=== PATIENT | male | born 1995 | race Caucasian/White ===

== ENCOUNTER 2020-01-13 13:34 | Emergency (ER) | payer OTHER, SELFPAY ==
[2020-01-13 13:44] VITALS: BP 133/81; PULSE 69; RESP 18; TEMP 35.9; O2SAT 98
--- NOTE | 2020-01-13 15:10 | ED.ABDPAIN ---
HPI - Abdominal Pain General Chief Complaint: Abdominal Pain Stated Complaint: stomach pains Time Seen by Provider: 01/13/20 15:10 Source: patient, family and RN notes reviewed Mode of arrival: ambulatory Limitations: no limitations History of Present Illness HPI narrative: 24-year-old male presents to [facility] care with complaints of 1- 2 month duration of intermittent abdominal pain and constipation.Patient states that he took fiber like Metamucil and had weird bowel movement yesterday, was huge and stringy wonders if he could have a parasite, denies noting any blood in stool. Patient states that his stomach is upset denies any acute abdominal pain, no pain in lower abdomen on either side, denies any vomiting or decrease in his appetite. Patient denies any difficulty with urination, no burning or pain or any noted blood or foul odor. MD elicited complaint: other (Constipation) Pertinent past history: constipation Onset (ago): month(s) (1-2) Pain Consistency: intermittent Location: epigastric (mid abdomen) Severity: similar to previous episodes Quality: cramping Radiation: none Migration to: no migration Exacerbating factors: bowel movement Relieving factors: bowel movement Associated symptoms: nausea and constipation Treatments prior to arrival: other (fiber) Related Data Allergies Allergy/AdvReac Type Severity Reaction Status Date / Time SERTRALINE HCL Allergy Mild Hives Uncoded 01/13/20 13:48 Review of Systems Review of Systems: Narrative: CONSTITUTIONAL: Denies fever, chills, or sweats. EYES: Denies visual changes, redness, or discharge. ENT: Denies rhinorrhea, congestion, sore throat, or otalgia. CARDIOVASCULAR: Denies chest pain, palpitations, or edema. RESPIRATORY: Denies cough or dyspnea. GASTROINTESTINAL: Intermittent abdominal pain/cramping,no nausea, vomiting, or diarrhea. GENITOURINARY: Denies dysuria or hematuria. SKIN: Denies rash or itching. MUSCULOSKELETAL: Denies back pain, joint pain, or myalgia. NEUROLOGIC: Denies headache, numbness, or weakness. PSYCHIATRIC:Positive history of anxiety or depression. All systems reviewed & are unremarkable except as noted in HPI and below PMFSH Past Medical History Medical History (Updated 01/17/20 @ 09:12 by Kim Fields NP) ADD (attention deficit disorder) Anxiety and depression Bipolar 1 disorder Ear infection Fracture of left hand Surgical History Surgical History (Updated 01/17/20 @ 09:12 by Kim Fields NP) History of placement of ear tubes Social History Social History (Updated 01/17/20 @ 09:12 by Kim Fields NP) Smoking status: Current every day smoker Living arrangements: with family Gender identity (if verbalized by the patient): Male Exam Narrative: Exam Narrative: GENERAL: Well-appearing, well-nourished, and in no acute distress. HEAD: Normocephalic, atraumatic. EYES: PERRLA and EOMI. ENT: Nares clear, no rhinorrhea or epistaxis. Mucous membranes moist.TM's normal with good light reflex, throat pink with no swelling or lesions NECK: Supple.no lymphadenopathy CHEST: Clear to auscultation. No respiratory distress. HEART: Regular rate and rhythm. No murmur heard. Normal peripheral pulses. ABDOMEN: Soft, nontender on palpation, negative McBurney point tenderness, no CVA tenderness noted, nondistended, normal active bowel sounds. EXTREMITIES: Normal range of motion. No edema. SKIN: Warm, dry, no rash. NEURO: No focal deficits. Alert and oriented x3. Course Vital Signs Vital signs: Vital Signs Temperature 35.9 C L 01/13/20 13:44 Pulse Rate 69 01/13/20 13:44 Respiratory Rate 18 01/13/20 13:44 Blood Pressure 133/81 01/13/20 13:44 Pulse Oximetry 98 01/13/20 13:44 Temperature 35.9 C L 01/13/20 13:44 Pulse Rate 69 01/13/20 13:44 Respiratory Rate 18 01/13/20 13:44 Blood Pressure 133/81 01/13/20 13:44 Pulse Oximetry 98 01/13/20 13:44 MDM - Abdominal Pain Differential Diagnosis Diff
== END 2020-01-13 15:30 | disposition home or self-care (01) ==
PROVIDERS: Emergency Provider Registered Nurse
DX: R10.13 Epigastric pain (principal); K59.00 Constipation, unspecified
CPT/HCPCS: 99213; G0463

== ENCOUNTER 2020-01-31 14:49 | Outpatient (CLI) | payer OTHER, SELFPAY | END 2020-01-31 14:50 | disposition home or self-care (01) | PROVIDERS: PCP Nurse Practitioner Family; Visit Provider Nurse Practitioner Family | DX: R19.5 Other fecal abnormalities (principal) | CPT/HCPCS: 87177; 87209 ==

== ENCOUNTER 2020-08-17 15:59 | Outpatient (CLI) | payer OTHER, SELFPAY ==
--- NOTE | ~2020-08-17 | US_ITS ---
EXAMINATION: US right upper quadrant DATE: 08/17/2020 16:29 INDICATION: Right upper quadrant abdominal pain. TECHNIQUE: Multiple grayscale and Doppler ultrasound images of the abdomen were obtained. COMPARISON: None FINDINGS: The visualized portions of the head, body, and tail of the pancreas are normal. The liver i s normal without focal lesion. There is normal flow in main portal vein. The gallbladder is normal in size. No gallstones or gallbladder wall thickening. There was no sonographic Mcneil sign. The common duct is normal and measures 3 mm. IMPRESSION: 1. Normal right upper quadrant ultrasound. Reviewed, dictated and finalized at location A.
== END 2020-08-17 16:00 | disposition home or self-care (01) ==
PROVIDERS: PCP Nurse Practitioner Family; Visit Provider Nurse Practitioner Family
DX: R10.11 Right upper quadrant pain (principal)
CPT/HCPCS: 76705

== ENCOUNTER 2021-04-17 12:03 | Outpatient (CLI) | payer OTHER, SELFPAY ==
--- NOTE | ~2021-04-17 | XR_ITS ---
XR elbow RT 2V 04/17/2021 12:40 INDICATION: Right elbow pain PROCEDURE: 2 views right elbow COMPARISON: No prior studies for comparison. FINDINGS: Fracture, dislocation or subluxation is not identified. The soft tissues appear within norm al limits. No foreign bodies are identified. IMPRESSION: 1: NO ACUTE BONE OR JOINT ABNORMALITY IDENTIFIED. Reviewed, dictated and finalized at location A.
[2021-04-17 12:44] LABS: Basophils Absolute Auto 0.1 K/mm3 (0.0-0.1); Basophils Percent Auto 1.1 % (0.2-1.2); Eosinophils Absolute Auto 0.2 K/mm3 (0-0.3); Eosinophils Percent Auto 3.4 % (0-4.4); Hematocrit 50.2 % (42.0-52.0); Hemoglobin 16.8 g/dL (14.0-18.0); Immature Granulocyte Absolute 0.01 K/mm3 (0.00-0.031); Immature Granulocyte Percent A 0.2 % (0-0.5); Lymphocytes Absolute Auto 2.02 K/mm3 (0.9-3.2); Lymphocytes Percent Auto 38.1 % (18.3-44.2); Mean Corpuscular HGB Conc 33.5 g/dl (32-36); Mean Corpuscular Hemoglobin 28.1 pg (26-34); Mean Corpuscular Volume 83.9 fl (80-100); Mean Platelet Volume 10.1 fl (7.4-10.4); Monocytes Absolute Auto 0.4 K/mm3 (0.1-0.6); Monocytes Percent Auto 7.7 % (2.6-8.5); Neutrophils Absolute Auto 2.6 K/mm3 (1.3-6.7); Neutrophils Percent Auto 49.5 % (45.5-73.1); Platelet Count Result 204 k/mm3 (150-375); Red Blood Count 5.98 M/mm3 (4.6-6.20); Red Cell Distribution Width 11.7 % (11.5-14.5); White Blood Count 5.3 K/mm3 (4.5-10.0)
[2021-04-17 13:05] LABS: LDL Cholesterol Direct 98 mg/dL
[2021-04-17 13:37] LABS: Vitamin D 25 Hydroxy 26.1 ng/mL
[2021-04-17 14:00] LABS: Folic Acid 15.5 ng/mL (2.76->20)
[2021-04-17 15:23] LABS: Alanine Aminotransferase 12 U/L (4-50); Albumin Level 5.1 g/dL (3.5-5.1); Alkaline Phosphatase 76 U/L (38-126); Anion Gap 12 mmol/L (8-16); Aspartate Amino Transferase 48 U/L (17-59); Bilirubin,Total 1.8 mg/dL (0.2-1.3); Blood Urea Nitrogen 11 mg/dL (9-20); Calcium 10.3 mg/dL (8.4-10.2); Carbon Dioxide 26 mmol/L (22-30); Chloride 104 mmol/L (98-107); Cholesterol 201 mg/dL (0-200); Estimated Glomerular Filt Rate > 60; Glucose 98 mg/dL (75-110); HDL Direct 46 mg/dL; Potassium 3.7 mmol/L (3.4-5.0); Sodium 142 mmol/L (137-145); Triglycerides 77 mg/dL (<150)
== END 2021-04-17 12:04 | disposition home or self-care (01) ==
PROVIDERS: PCP Nurse Practitioner Family; Visit Provider Nurse Practitioner Family
DX: Z13.0 Encounter for screening for diseases of the blood and blood-forming organs and certain disorders involving the immune mechanism (principal); Z13.1 Encounter for screening for diabetes mellitus; Z13.29 Encounter for screening for other suspected endocrine disorder; Z13.9 Encounter for screening, unspecified; Z13.220 Encounter for screening for lipoid disorders
CPT/HCPCS: 36415; 73070; 80053; 80061; 82306; 82607; 82746; 84443; 85025

== ENCOUNTER 2021-08-15 16:13 | Emergency (ER) | payer OTHER, SELFPAY ==
[2021-08-15 16:25] VITALS: BP 139/80; PULSE 70; RESP 16; TEMP 36.9; O2SAT 100
--- NOTE | 2021-08-15 17:02 | ED.NAVMDI ---
HPI - Nausea/Vomiting/Diarrhea General Chief complaint: Upper Respiratory Infection Stated complaint: Upset Stomach Source: patient and RN notes reviewed Limitations: no limitations History of Present Illness HPI Narrative: The unvaccinated patient, a non-smoker/nondrinker recreation worker, presents with stomach symptoms and request for work note. About a half a week patient first developed vomiting x5/day followed by diarrhea x3/day for 4 days, the coworkers had, which is since improved. No fever, foreign travel, abdominal pain, blood; no loss of taste/smell, CP, cough, S OB. Symptoms are almost completely absent at this point associated with nausea, worse with large oral intake. Related Data Allergies Allergy/AdvReac Type Severity Reaction Status Date / Time cannabidiol (CBD) extract AdvReac Intermediate Nausea and Verified 08/15/21 18:12 Vomiting nicotine AdvReac Intermediate Fainting Verified 08/15/21 18:12 SERTRALINE HCL Allergy Mild Hives Uncoded 08/15/21 18:11 Review of Systems Review of Systems: General/Constitutional: No weight loss,fever Eyes: N0: Redness,discharge Ears/Nose/Throat: No: Epistaxis,ear discharge Respiratory: Denies: Hemoptysis Gastrointestinal: Bleeding-rectal, REPORTS vomiting Skin: No Lumps, eruption Neurologic: No Focal Weakness,Sz Hematologic: Denies: Petechiae/Purpura Psychiatric: No: Suicida ideationl All Other Systems: Reviewed and Negative [facility] Past Medical History Medical History (Updated 08/15/21 @ 17:05 by Jose Elias Leone MD) ADD (attention deficit disorder) Anxiety and depression Bipolar 1 disorder Ear infection Fracture of left hand Surgical History Surgical History (Updated 01/17/20 @ 09:12 by Kim Fields NP) History of placement of ear tubes Social History Social History (Updated 01/17/20 @ 09:12 by Kim Fields NP) Smoking status: Current every day smoker Gender identity (if verbalized by the patient): Male Comments At time of signature, agree with nursing past medical, surgical, social and family history. There is no relevant family history pertinent to the presenting complaint Exam Narrative: General Appearance: Well appearing, No distress EYE: PERRLA, Conjunctiva clear Ears: External ear normal Nose: Normal nose Mouth/Throat: Normal appearing, Normal lips Neck: Supple Respiratory: Airway patent, No respiratory distress Cardiovascular: RRR Abdomen: Soft, Non-tender, Musculoskeletal: Full ROM Skin: Warm, Dry Neurological: A&O x3, CN II-X intact Psychiatric: Normal mood, Normal affect Course Vital Signs Vital signs: Vital Signs Temperature 98.5 F 08/15/21 16:25 Pulse Rate 70 08/15/21 16:25 Respiratory Rate 16 08/15/21 16:25 Blood Pressure 139/80 08/15/21 16:25 Pulse Oximetry 100 08/15/21 16:25 Temperature 98.5 F 08/15/21 16:25 Pulse Rate 70 08/15/21 16:25 Respiratory Rate 16 08/15/21 16:25 Blood Pressure 139/80 08/15/21 16:25 Pulse Oximetry 100 08/15/21 16:25 MDM - Nausea/Vomiting/Diarrhea Lab Data Labs: Lab Results 08/15/21 Range/Units 16:35 POC SARS CoV-2 Ag Negative (Negative) Discharge Plan Discharge Clinical Impression: Vomiting and diarrhea Patient Disposition: Home, Self-Care Condition: Stable Instructions: Gastroenteritis (ED) Additional Instructions: You may take OTC preparations for diarrhea like Imodium, etc. Prescriptions: New ondansetron HCl [Zofran] 4 mg tablet 4 mg PO DAILY PRN (Reason: nausea and vomiting) 1 Days Qty: 10 RF: 0 No Action famotidine [Pepcid] 40 mg tablet 40 mg PO DAILY Qty: 30 RF: 0 polyethylene glycol 3350 17 gram/dose powder 17 gm PO DAILY Qty: 510 RF: 0 Follow-up/Referrals: Long,Adriana Waters BRAKES INSPECTOR-BC [Primary Care Provider] - Stand Alone Forms: Work/School Release IP
== END 2021-08-15 17:15 | disposition home or self-care (01) ==
PROVIDERS: Emergency Provider Emergency Medicine; PCP Nurse Practitioner Family
DX: R11.10 Vomiting, unspecified (principal); R19.7 Diarrhea, unspecified; Z20.822 Contact with and (suspected) exposure to COVID-19
CPT/HCPCS: 87426; 99213; C9803; G0463

== ENCOUNTER 2022-06-05 08:03 | Emergency (ER) | payer OTHER, SELFPAY ==
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
[2022-06-05 08:12] VITALS: BP 123/78; PULSE 50; RESP 16; TEMP 36.8; O2SAT 100
== END 2022-06-05 08:35 | disposition short-term general hospital (02) ==
PROVIDERS: Emergency Provider Nurse Practitioner Family; PCP Nurse Practitioner Family
DX: S69.91XA Unspecified injury of right wrist, hand and finger(s), initial encounter (principal); X58.XXXA Exposure to other specified factors, initial encounter
CPT/HCPCS: 99212; G0463

== ENCOUNTER 2022-06-05 08:48 | Emergency (ER) | payer OTHER, SELFPAY ==
--- NOTE | ~2022-06-05 | XR_ITS ---
XR hand RT min 3V DATE: 06/05/2022 09:07 INDICATION: Hyperextension injury of second digit yesterday. Pain at second metacarpophalangeal joint TECHNIQUE: 3 views of right hand COMPARISON: None FINDINGS: No recent fracture or dislocation. No periosteal reaction or bone destruction. No erosive c hange. Joint spaces are preserved. IMPRESSION: No recent fracture or dislocation Reviewed, dictated and finalized at location A.
[2022-06-05 08:58] VITALS: BP 140/73; PULSE 46; RESP 16; TEMP 36.6; O2SAT 100
[2022-06-05 10:20] VITALS: PULSE 82
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
[2022-06-05 10:35] VITALS: BP 122/77; PULSE 88; RESP 16; O2SAT 100
== END 2022-06-05 10:36 | disposition home or self-care (01) ==
LOC: ANHED 10:30
PROVIDERS: Emergency Provider Emergency Medicine; PCP Nurse Practitioner Family
DX: S69.91XA Unspecified injury of right wrist, hand and finger(s), initial encounter (principal); F17.200 Nicotine dependence, unspecified, uncomplicated; W22.8XXA Striking against or struck by other objects, initial encounter
CPT/HCPCS: 73130; 99283

== ENCOUNTER 2023-01-05 17:20 | Outpatient (CLI) | payer OTHER, SELFPAY ==
--- NOTE | ~2023-01-05 | XR_ITS ---
XR hand RT min 3V, XR finger 5th RT min 2V 01/05/2023 17:49 Indication: Right hand and fifth finger pain after fall Procedure: 3 views right hand and 4 views right fifth finger Comparison: Right hand series dated 06/05/2022 Findings: There is a healed right fifth metacarpal fracture. No acute fracture, subluxation or disloc ation. There is mild soft tissue swelling along the ulnar aspect of the fifth metacarpal. Impression: 1: No acute fracture. Reviewed, dictated and finalized at location A. DUMPER Impression: 1: No acute fracture. Impression: 1: No acute fracture.
== END 2023-01-05 17:21 | disposition home or self-care (01) ==
LOC: ANHIMG 17:23
PROVIDERS: PCP Nurse Practitioner Family; Visit Provider Nurse Practitioner Family
DX: M79.641 Pain in right hand (principal)
CPT/HCPCS: 73130; 73140

== ENCOUNTER 2023-08-11 19:13 | Emergency (ER) | payer SELFPAY ==
--- NOTE | 2023-08-11 19:17 | ED.NAVMDI ---
HPI - Nausea/Vomiting/Diarrhea General Chief complaint: Nausea/Vomiting/Diarrhea Stated complaint: Vomiting,Diarrhea Time Seen by Provider: 08/11/23 19:27 Source: patient and RN notes reviewed Mode of arrival: ambulatory Limitations: no limitations History of Present Illness HPI Narrative: 27-year-old male presents concern for vomiting and diarrhea. He reports 2 days ago he had copious vomiting and diarrhea that he relates to eating peanuts. He has a history of cannabis hyperemesis. He reports he has not had any vomiting or diarrhea since yesterday morning. He has been eating and drinking normally, he is urinating normally. He reports the day he was sick he had chills and sweats but denies fever, chills, sweats in the last 36 hours. He denies nasal congestion, rhinorrhea, sore throat, cough, body aches. MD elicited complaint: nausea, vomiting and diarrhea Related Data Home Medications Medication Instructions Recorded Confirmed No Home Medications 06/05/22 08/11/23 Allergies Allergy/AdvReac Type Severity Reaction Status Date / Time cannabidiol (CBD) extract AdvReac Intermediate Nausea and Verified 08/11/23 19:15 Vomiting nicotine AdvReac Intermediate Fainting Verified 08/11/23 19:15 SERTRALINE HCL AdvReac Mild Hives Uncoded 08/11/23 19:15 Review of Systems Review of Systems: CONSTITUTIONAL: Denies malaise, chills, sweats, or fever. ENT: Denies rhinorrhea, congestion, sinus pain, otalgia or sore throat. CARDIOVASCULAR: Denies chest pain, palpitations, or edema. RESPIRATORY: Denies cough or dyspnea. GASTROINTESTINAL: Denies abdominal pain, nausea, vomiting, diarrhea, bloody, or mucous stools. GENITOURINARY: Denies dysuria or hematuria. MUSCULOSKELETAL: Denies myalgia. NEUROLOGIC: Denies headache. All systems reviewed & are unremarkable except as noted in HPI and below PMFSH Past Medical History Medical History ADD (attention deficit disorder) Anxiety and depression Bipolar 1 disorder Ear infection Fracture of left hand Surgical History Surgical History History of placement of ear tubes Social History Social History Smoking status: Current every day smoker Living arrangements: with family Gender identity (if verbalized by the patient): Male Comments At time of signature, agree with nursing past medical, surgical, social and family history. There is no relevant family history pertinent to the presenting complaint Exam Narrative: GENERAL: Well-appearing, well-nourished, and in no acute distress. HEAD: Normocephalic, atraumatic. EYES: PERRLA, conjunctivae clear, and EOMI. ENT: Nares clear, no rhinorrhea or epistaxis. Mucous membranes moist. Oropharynx without edema, erythema, or lesions. Tonsils not enlarged and without exudate. NECK: Supple. No lymphadenopathy CHEST: Speaks in full sentences. No respiratory distress. HEART: Regular rate and rhythm. ABDOMEN: Soft, flat, nondistended, nontender. SKIN: Warm, dry, no rash. NEURO: Alert and oriented x3. PSYCH: Normal mood and affect Course Course Emergency Course: Patient is aware of diagnosis, understands and agrees to treatment plan. Anticipatory guidance given. Patient agrees to follow-up as directed and is aware of reasons to seek care at the emergency department. Portions of this record may have been created with voice recognition software Level of Care: Express Care Visit Vital Signs Vital signs: Reviewed. MDM - Nausea/Vomiting/Diarrhea MDM Narrative Medical decision making narrative: No evidence of pancreatitis, AAA, cholecystitis, choledocholithiasis, cholangitis, mesenteric ischemia, small bowel obstruction, diverticulitis, colitis, appendicitis, or pelvic etiology such as ovarian/testicular torsion, TOA, or ectopic . Patient
[2023-08-11 19:28] VITALS: BP 145/80; PULSE 54; RESP 16; TEMP 36.3; O2SAT 100
== END 2023-08-11 19:34 | disposition home or self-care (01) ==
PROVIDERS: Emergency Provider Nurse Practitioner; PCP Nurse Practitioner Family
DX: R11.2 Nausea with vomiting, unspecified (principal); R19.7 Diarrhea, unspecified
CPT/HCPCS: 99211; G0463

== ENCOUNTER 2025-01-14 13:13 | Emergency (ER) | payer OTHER, SELFPAY ==
--- NOTE | 2025-01-14 13:14 | ED.LOWEXIN ---
HPI - Extremity Injury (Lower) General Chief Complaint: Extremity Problem,Nontraumatic Stated Complaint: LT Knee Pain Time Seen by Provider: 01/14/25 13:14 Source: patient Mode of arrival: ambulatory Limitations: no limitations History of Present Illness HPI Narrative: Patient is a 29-year-old male who presents with left knee pain for 5 days. Patient states he had been working out and then was at work going down stairs when he had sharp pain to lateral side knee. Patient states pain has improved but is still present only when walking. Denies any numbness, tingling or weakness to legs. Has not taken anything for symptoms. Related Data Home Medications ?Medication ?Instructions ?Recorded ?Confirmed ?Last Taken ?Type No Home Medications 06/05/22 08/11/23 Unknown History Allergies Allergy/AdvReac Type Severity Reaction Status Date / Time cannabidiol (CBD) extract AdvReac Intermediate Nausea and Verified 01/14/25 13:16 Vomiting nicotine AdvReac Intermediate Fainting Verified 01/14/25 13:16 SERTRALINE HCL AdvReac Mild Hives Uncoded 01/14/25 13:16 Review of Systems Review of Systems: All systems reviewed & are unremarkable except as noted in HPI and below Constitutional: Constitutional: Denies body ache(s), Denies chills, Denies fatigue, Denies fever(s), Denies headache(s), Denies malaise and Denies weakness Eyes: Eyes: Denies blurry vision, Denies irritation and Denies loss of vision ENT: Denies otalgia, Denies headache(s), Denies nasal discharge, Denies sinus pain and Denies sore throat Cardiovascular: Cardiovascular: Denies chest pain, Denies irregular heart rhythm and Denies dyspnea Respiratory: Respiratory: Denies dyspnea Gastrointestinal: Gastrointestinal: Denies abdominal pain, Denies melena, Denies hematochezia, Denies diarrhea, Denies nausea and Denies vomiting Musculoskeletal: Musculoskeletal: Denies back pain, Denies myalgias and Reports arthralgias Integumentary/Breasts: Skin/Breast: Denies pruritus and Denies rash Neurologic: Denies headache(s), Denies loss of vision and Denies weakness Psychiatric: Psychiatric: Reports no additional psychiatric complaints Endocrine: Endocrine: Denies fatigue PMFSH Past Medical History Medical History Fracture of left hand Ear infection ADD (attention deficit disorder) Bipolar 1 disorder Anxiety and depression Surgical History Surgical History History of placement of ear tubes Social History Social History Smoking status: Current every day smoker Living arrangements: with family Gender identity (if verbalized by the patient): Male Comments At time of signature, agree with nursing past medical, surgical, social and family history. There is no relevant family history pertinent to the presenting complaint. Exam Const: General: cooperative, healthy appearing, comfortable, no acute distress and well nourished Nutritional Appearance: well nourished Orientation/consciousness: patient oriented x3 Limitations: no limitations HENMT: Head: normal to inspection, normocephalic and atraumatic Ears: hearing grossly normal bilaterally and external ears normal Face/Nose/Sinus: Normal external nose present, normal facial exam and face symmetric Face and sinus: normal facial exam and face symmetric Mouth: Yes lip normal Eyes: General: appearance normal, both eyes and all related structures Alignment and Position: alignment normal and position normal Periorbital: periorbital findings normal Eyelids: eyelids normal Pupils: Equal, round and reactive pupils present EOM: EOMs intact bilaterally Neck: Neck: normal visual inspection, full ROM and supple Chest: Chest palpation & inspection: normal inspection of the chest Resp: Effort & Inspection: normal respiratory effort and able to speak in complete sentences Auscultation: clear to auscultation bilaterally Cardio: Rate: regular rate Rhythm: regular rhythm Heart sounds: S1 normal heart sound present and S2 normal heart sound present GI: Inspection: normal to inspection Skin: General skin exam: normal color and no rashes or lesions noted Neuro: General: patient oriented x3 and moves all extremities Cranial nerves: Yes Equal, round and reactive pupils present Speech: normal speech Gait exam (Neuro): Normal gait present Extrem: General: normal to inspection, full ROM and no edema Left lower extremity: knee Details: normal to inspection, tenderness Location: of the lateral joint line, normal ROM and knee ligament exam normal Details: anterior drawer test normal, posterior drawer test normal, valgus stress test normal and varus stress test normal; no swelling, no ecchymosis and no deformity, lower leg Details: normal to inspection, ankle Details: normal to inspection and normal ROM; achilles tendon exam normal and foot Details: normal capillary refill, toes with normal ROM and vascular exam Details: dorsalis pedis pulse present and normal capillary refill Psych: Appearance: grossly normal and well kempt Mental Status: mental status grossly normal Speech and movement: Normal speech and movement present Affect: normal affect Attitude: cooperative Thought process: Normal thought process present Course Course Emergency Course: Patient is aware of diagnosis, understands and agrees to treatment plan. Anticipatory guidance given. Patient agrees to follow-up as directed and is aware of reasons to seek care at the emergency department. Portions of this record may have been created with voice recognition software Level of Care: Express Care Visit Vital Signs Vital signs: Reviewed MDM - Extremity Injury (Lower) MDM Narrative Medical decision making narrative: An Conner wrap applied Pt well hydrated appearing, in no respiratory distress, hemodynamically stable. Recommend supportive care. The patient is stable at time of discharge the clinical impression was discussed and the patient was given the opportunity to ask questions, which were addressed as completely as possible given the information available at present. Anticipatory guidance and return to care precautions were discussed and the importance of primary care follow-up was stressed and encouraged. The patient voiced understanding of the plan, indications to return, and the need for follow-up. Exam findings show no acute concerns or changes Patient is appropriate for outpatient treatment and follow-up. Differential Diagnosis Differential diagnosis: Likely acute internal derangement of knee, fracture of femur and other (Knee sprain, knee effusion, less likely to plateau fracture or patellar fracture) Medical Records Attestation: I reviewed the patient's medical records. Discharge Plan Discharge Clinical Impression: Strain of knee Qualifiers: Encounter type: initial encounter Laterality: left Qualified Code(s): S86.912A - Strain of unspecified muscle(s) and tendon(s) at lower leg level, left leg, initial encounter Patient Disposition: Home, Self-Care Condition: Stable Instructions: Knee Sprain (ED) Additional Instructions: Minimize activities that aggravate the condition The RICE protocol. Follow the RICE protocol as soon as possible after your injury: Rest your knee by not walking on it. Ice should be immediately applied to keep the swelling down. It can be used for 20 to 30 minutes, three or four times daily. Do not apply ice directly to your skin. Compression dressings, bandages or conner-wraps will immobilize and support your injured knee. Elevate your knee above the level of your heart as often as possible during the first 48 hours. For pain, you may take: Tylenol 650-1000mg by mouth every 4-6 hours. Do not exceed 4000mg in 24 hours. Advil (Ibuprofen) 600 mg by mouth every 6 hours. Do not exceed 2400mg in 24 hours. 8 AM: Tylenol 11 AM: Ibuprofen 2 PM: Tylenol 5 PM: Ibuprofen 8 PM: Tylenol 11 PM: Ibuprofen 2 AM: Tylenol 5 AM: Ibuprofen Please schedule a follow-up visit with your personal physician for further evaluation and treatment within 1week OR If your symptoms persist, change or worsen significantly before you can contact your personal physician then please, without delay, go to the emergency department for further evaluation. If you are having a hard time finding a physician please call our [facility] liaison at [phone]. Patient Language: Azeri Prescriptions: No Action No Home Medications Follow-up/Referrals: Ira Damon DO [Physician] - 3 Days (Establish care) Stand Alone Forms: Work/School Release IP Time of Disposition: 13:31
[2025-01-14 13:22] VITALS: BP 140/69; PULSE 66; RESP 18; TEMP 36.2; O2SAT 99
--- OUTSIDE RECORDS SUMMARY | 2025-01-14 15:04 | XMS_ITS | Clinical Summary ---
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 [employer] Gender Identity Not on file Sexual Orientation Not on file Plan of Treatment Health Maintenance Due Date Last Done Comments Hepatitis C Virus (HCV) Screening 1996 Hepatitis B Immunization (2 of 3 - 3-dose series) 12/06/1997 11/08/1997 Influenza Immunization (#1) 2024 SARS-COV-2 Immunization ( season) 2024 Respiratory Syncytial Virus (RSV) Immunization (Adult) (1 - 1-dose 75+ series) 2071 DTaP/Tdap/Td Immunization Discontinued 2006, 12/26/2000, 02/10/1998, Additional history exists TdaP Immunization Completed 08/22/2007 Meningococcal Immunization (ACWY) Completed 09/11/2014, 05/27/2011 Pneumococcal Immunization Combined Aged Out No longer eligible based on patient's age to complete this topic Rotavirus Immunization Aged Out No lo nger eligible based on patient's age to complete this topic
--- OUTSIDE RECORDS SUMMARY | 2025-01-14 15:04 | XMS_ITS | Clinical Summary ---
Author Organization [facility] Address [address] [place] [id number] Care Team Providers Care Service Officer Name Role Phone Unavailable Primary Care Provider Unavailabl e Social History Tobacco Use Types Packs/Day Years Used Date Smoking Tobacco: Never Assessed Sex and Gender Information Value Date Recorded Sex Assigned at Not on file Legal Sex Male 6:52 PM CDT Gender Identity Not on file Sexual Orientation Not on file Plan of Treatment Health Maintenance Due Date Last Done Comments Annual Physical 1999 Hepatitis C 2014 DTaP, Tdap and Td Vaccines ( 1 - Tdap) 2015 Hepatitis B Vaccines (1 of 3 - 19+ 3-dose series) 2015 COVID-19 Vaccine (2023-2 5 season) 2024 Influenza Adult (#1) 2024 HPV Vaccines Aged Out No longer eligi ble based on patient's age to complete this topic Meningococcal B Vaccine Aged Out No l onger eligible based on patient's age to complete this topic Meningococcal Vaccine Aged Out No arleen patrick eligible based on patient's age to complete this topic Pneumococcal Vaccine: Pediat rics (0 to 5 Years) and At-Risk Patients (6 to 64 Years) Aged Out No longer eligible b ased on patient's age to complete this topic RSV Immunizations Under 20 Months Aged Out No longer eligible based on patient's age to complete this topic
== END 2025-01-14 13:32 | disposition home or self-care (01) ==
PROVIDERS: Emergency Provider Nurse Practitioner Family
DX: S86.912A Strain of unspecified muscle(s) and tendon(s) at lower leg level, left leg, initial encounter (principal); X58.XXXA Exposure to other specified factors, initial encounter
CPT/HCPCS: 99212; G0463

== ENCOUNTER 2025-07-01 14:11 | Emergency (ER) | payer OTHER, SELFPAY ==
[2025-07-01 14:17] VITALS: BP 130/80; PULSE 53; RESP 18; TEMP 36.1; O2SAT 100
--- OUTSIDE RECORDS SUMMARY | 2025-07-01 14:38 | XMS_ITS | Clinical Summary ---
Author Organization [facility] Address [address] [place] [id number] Care Team Providers Care Windlasser Name Role Phone Unavailable Primary Care Provider [...] of 3 - 19+ 3-dose series) 2015 HPV Vaccines (1 - 3-dose SCD M series) 2023 COVID-19 Vaccine ( - 2023-2 5 season) 2024 Meningococcal B Vaccine Aged Out No l onger eligible based on patient's age to complete this topic Meningococcal Vaccine Aged Out No arleen patrick eligible based on patient's age to complete this topic Pneumococcal Vaccine: Pediat rics (0 to 5 Years) and At-Risk Patients (6 to 49 Years) Aged Out No longer eligible b ased on patient's age to complete this topic RSV Immunizations Under 20 Months Aged Out No longer eligible based on patient's age to complete this topic
--- NOTE | 2025-07-01 14:40 | ED_ITS ---
HPI - Extremity Problem General Chief complaint: Extremity Problem,Nontraumatic Stated complaint: Bilateral Leg Pain Time Seen by Provider: 07/01/25 14:15 Source: patient and RN notes reviewed Mode of arrival: ambulatory Limitations: no limitations History of Present Illness HPI Narrative: 29-year-old male presents to the [facility] complaining of bilateral calf pain for 3 days. Patient believes he thought they might have been sore from exercising 3 days ago, he states he was working on his legs at that time. Today he woke up with severe calf pain in both of his calves that it was much worse the last few days. Patient says his mother thinks his legs are swollen however he does not think his legs are swollen. Patient reports the pain is worse when he is going from sitting to standing in the back of his calves. Patient denies any falls or apparent injuries, chest pain, shortness of breath, history of blood clots, or any medical problems. Patient is not taking medications daily. Patient is not taking anything for the pain. Related Data Home Medications ?Medication ?Instructions ?Recorded ?Confirmed ?Last Taken ?Type No Home Medications 06/05/22 07/01/25 Unknown History Allergies Allergy/AdvReac Type Severity Reaction Status Date / Time cannabidiol (CBD) extract AdvReac Intermediate Nausea and Verified 07/01/25 14:13 Vomiting nicotine AdvReac Intermediate Fainting Verified 07/01/25 14:13 SERTRALINE HCL AdvReac Mild Hives Uncoded 07/01/25 14:13 Review of Systems Review of Systems: CONSTITUTIONAL: Denies fever, chills, or sweats. EYES: Denies visual changes, redness, or discharge. ENT: Denies rhinorrhea, congestion, sore throat, or otalgia. CARDIOVASCULAR: Denies chest pain, palpitations, or edema. RESPIRATORY: Denies cough or dyspnea. GASTROINTESTINAL: Denies abdominal pain, nausea, vomiting, or diarrhea. GENITOURINARY: Denies dysuria or hematuria. SKIN: Denies rash or itching. MUSCULOSKELETAL: Denies back pain, joint pain, or myalgia. Positive for calf pain. NEUROLOGIC: Denies headache, numbness, or weakness. PSYCHIATRIC: Denies anxiety or depression. All other systems reviewed are negative, except as documented in HPI. [facility] Past Medical History Medical History Fracture of left hand Ear infection ADD (attention deficit disorder) Bipolar 1 disorder Anxiety and depression Surgical History Surgical History History of placement of ear tubes Social History Social History Smoking status: Current every day smoker Living arrangements: with family Gender identity (if verbalized by the patient): Male Comments At the time of my signature, I reviewed and agree with the nursing past medical, surgical, social, and family history. There is no relevant family history pertinent to the patient complaint. Exam Narrative: GENERAL: This is a well-nourished, well-developed adult, in no apparent distress. They are non ill-appearing, nontoxic appearing. HEAD: normocephalic, atraumatic. EYES: Sclera clear/white. Conjunctiva normal. Vision is grossly intact. Extraocular movements intact EARS: External ears normal. Hearing grossly intact. NOSE: External nose normal THROAT: Mucous membranes moist, NECK: Neck supple, CARDIOVASCULAR: Regular rate and rhythm RESPIRATORY: Respiratory rate normal, respiratory effort nonlabored, no respiratory distress SKIN: warm, Dry, intact with no suspicious lesions or rash, good texture and turgor. NEURO: awake, alert, and oriented to person, place and time. There were no obvious focal neurologic abnormalities. EXTREMITIES: No joint tenderness, effusion, or edema noted. No palpable cord. Bilateral lower extremities: No obvious deformity, swelling, bruising, redness, or injury. There is tenderness to palpation to the back of the calf behind the knees bilaterally. Capillary refill less than 2 seconds. Neurovascular status intact. No edema. Course Course Emergency Course: Portions of this record may have been created with voice recognition software Level of Care: Express Care Visit Vital Signs Vital signs: Vital Signs Temperature 97.0 F L 07/01/25 14:17 Pulse Rate 53 L 07/01/25 14:17 Respiratory Rate 18 07/01/25 14:17 Blood Pressure 130/80 07/01/25 14:17 Pulse Oximetry 100 07/01/25 14:17 Oxygen Delivery Room Air 07/01/25 14:17 Temperature 97.0 F L 07/01/25 14:17 Pulse Rate 53 L 07/01/25 14:17 Respiratory Rate 18 07/01/25 14:17 Blood Pressure 130/80 07/01/25 14:17 Pulse Oximetry 100 07/01/25 14:17 Oxygen Delivery Room Air 07/01/25 14:17 Reviewed Transfer Transfered to: Other ([facility] ER) Transfer rationale: Rule out DVT however patient requires higher level care, further imaging and lab work. Accepting physician: Henrry MDM - Extremity (Nontraumatic) MDM Narrative Medical decision making narrative: Likely patient has calf strains bilaterally given his history of presenting illness. Wells score of 1. Patient has concerns having blood clots given his pain, he rates in any out of 10, cannot exclude blood clot though pain is bilateral. Patient has no history of blood clots. Explained to patient this express care does not have any ultrasound or lab work ability to recall his concern for blood clots per. Given patient's symptoms, it is recommend the patient seek a higher level care and proceed immediately to the emergency department. Patient is agreeable to go to [facility] ER in [place]. Call over to [facility] ER spoke with Donna Wang was wear this patient and Dr. Sales who accepted this patient for transfer. Patient advised to remain NPO and proceed immediately to the ER. Patient said he will drive himself via POV. Differential Diagnosis Differential diagnosis: Likely other (Muscle strain, DVT, ligament strain, tendon injury) Critical Care Time Critical Care Time Critical Care Time: No Discharge Plan Discharge Clinical Impression: Bilateral calf pain Patient Disposition: Acute Care Hospital Condition: Stable Patient Language: Irish Prescriptions: No Action No Home Medications Follow-up/Referrals: PHYSICIAN,MUD LOGGER [Primary Care Provider] - Time of Disposition: 14:40
== END 2025-07-01 14:41 | disposition short-term general hospital (02) ==
DX: M79.662 Pain in left lower leg (principal); M79.661 Pain in right lower leg; F17.200 Nicotine dependence, unspecified, uncomplicated
CPT/HCPCS: 99212; G0463

== ENCOUNTER 2025-08-20 14:40 | Emergency (ER) | payer OTHER, SELFPAY ==
--- OUTSIDE RECORDS SUMMARY | 2025-08-20 14:44 | XMS_ITS | Clinical Summary ---
Author Organization [facility] Address [address] [place] [id number] Care Team Providers Care Rehab Department Manager Name Role Phone None, Provider MD Primary Care Provider Unavaila ble Allergies No known active allergies Medications Vitamin D-Vitamin K (VITAMIN K2-VITAMIN D3 OR) Take 1 tablet by mouth 2 (two) times a day. Active Creatine Powder Take 1 Scoop by mouth daily. Active magnesium oxide (MAG-OX) 400 (240 Mg) MG tablet Take 1 tablet (400 mg total) by mouth daily. 4 tablet 07/04/2025 Active Active Problems Problem Noted Date Diagnosed Date Rhabdomyolysis 07/01/2025 Encounters Date Type Department Care Team Description 07/01/2025 8:00 PM CDT - 07/03/2025 11:30 AM CDT Hospital Encounter [facility] Medical/Surgical [address] [place] [address] Akua Vera MD Saha, Paban, MD Sahi, Robinder S, MD Discharge Disposition: Home or Self Care (Routine Discharge) 07/01/2025 4:12 PM CDT - 07/01/2025 7:42 PM CDT Emergency [facility] Emergency Room [address] [place] [id number] Bandar Sales MD Calf Pain (bilateral) Discharge Disposition: Transfer to Acute Care Hospital 07/01/2025 Travel from Last 3 Months Social History Tobacco Use Types Packs/Day Years Used Date Smoking Tobacco: Never Smokeless Tobacco: Never Tobacco Cessation:Counseling Given: Not Answered Alcohol Use Standard Drinks/Week Comments Never 0 (1 standard drink = 0.6 oz pur e alcohol) B1300 Health Literacy Answer Date Recor ded How often do you need to hav e someone help you when you read instructions, pamphlets, or other written material from your doctor or pharmacy? Never 07/01/2025 [facility] Utilities Answer Date Recorded In the past 12 months has th e [employer], gas, oil, or water company threatened to shut off services in your home? No 07/01/2025 Humiliation, Afraid, Rape, and Kick questionnair e Answer Date Recorded Within the last year, have y ou been afraid of your partner or ex-partner? No 07/01/2025 Within the last year, have y ou been humiliated or emotionally abused in other ways by your partner or ex-partner? No Within the last year, have y ou been kicked, hit, slapped, or otherwise physically hurt by your partner or ex-partner? No 07/01/2025 Within the last year, have y ou been raped or forced to have any kind of sexual activity by your partner or ex-partner? No 07/01/2025 Social Connection and Isolat ion Panel [NHANES] Answer Date Recorded In a typical week, how many times do you talk on the phone with family, friends, or neighbors? More than three times a week 07/01/2025 How often do you get togethe r with friends or relatives? More than three times a week 07/01/2025 How often do you attend [facility] or congregational services? Never 07/01/2025 Do you belong to any clubs o r organizations such as baptist groups, unions, fraternal or athletic groups, or school groups? No 07/01/2025 How often do you attend meet ings of the clubs or organizations you belong to? Never 07/01/2025 Are you , , di vorced, , never , or living with a partner? Living with partner 07/01/2025 AUDIT-C Answer Date Recorded Q1: How often do you have a drink containing alcohol? Never 07/01/2025 Q2: How many drinks containi ng alcohol do you have on a typical day when you are drinking? Patient does not drink Q3: How often do you have si x or more drinks on one occasion? Never 07/01/2025 Overall Financial Resource Strain (CARDIA) Answe r Date Recorded How hard is it for you to pa y for the very basics like food, housing, medical care, and heating? Not very hard 07/01/2025 PHQ-2 Answer Date Recorded Patient Health Questionnaire-2 Score 0 07/01/2025 [facility] - Occupational Stress Questionnaire Answer Date Recorded Do you feel stress - tense, restless, nervous, or anxious, or unable to sleep at night because your mind is troubled all the time - these days? Not at all 07/01/2025 Exercise Vital Sign Answer Date Recorde d On average, how many days pe r week do you engage in moderate to strenuous exercise (like a brisk walk)? 7 days 07/01/2025 On average, how many minutes do you engage in exercise at this level? 150+ min 07/01/2025 Hunger Vital Sign Answer Date Recorded Within the past 12 months, y ou worried that your food would run out before you got the money to buy more. Never true 07/01/20 25 Within the past 12 months, t he food you bought just didn't last and you didn't have money to get more. Never true 07/01/2025 PRAPARE - Transportation Answer Date Re corded In the past 12 months, has l ack of transportation kept you from medical appointments or from getting medications? No 06/20 In the past 12 months, has l ack of transportation kept you from meetings, work, or from getting things needed for daily living? No 07/01/2025 Housing Stability Vital Sign Answer Kyaw e Recorded In the last 12 months, was t here a time when you were not able to pay the mortgage or rent on time? No 07/01/2025 In the past 12 months, how m any times have you moved where you were living? 1 07/01/2025 At any time in the past 12 m [facility], were you homeless or living in a alf (including now)? No 07/01/2025 Education Answer Date Recorded What is the highest level of school you have completed or the highest degree you have received? High school graduate 07/01/2025 Sex and Gender Information Value Date Recorded Sex Assigned at Male 07/01/2025 4:11 PM CDT Legal Sex Male 6:52 PM CDT Gender Identity Not on file Sexual Orientation Not on file Last Filed Vital Signs Vital Sign Reading Time Taken Comments Blood Pressure 126/78 07/03/2025 7:30 AM CDT Pulse 54 07/03/2025 4:00 AM CDT Temperature 36.4 C (97.6 F) 07/03/2025 7:30 AM CDT Respiratory Rate 20 07/03/2025 7:30 AM CDT Oxygen Saturation 97% 07/03/2025 7:30 AM CDT Inhaled Oxygen Concentration - - Weight 74.8 kg (165 lb) 07/03/2025 5:00 AM CDT Height 188 cm (6' 2) 07/01/2025 9:00 PM CDT Body Mass Index 21.18 07/01/2025 9:00 PM CDT Plan of Treatment Health Maintenance Due Date Last Done Comments Hepatitis B Vaccines (2 of 3 - 3-dose series) 12/06/1997 11/08/1997 Annual Physical 1999 Hepatitis C 2014 DTaP, Tdap and Td Vaccines (6 - Td or Tdap) 08/22/2017 08/22/2007, 12/26/2000, 02/10/1998, Additional history exists HPV Vaccines (1 - 3-dose SCDM series) 2023 COVID-19 Vaccine ( season) 2025 Meningococcal Vaccine Completed 09/11/2014, 011 Meningococcal B Vaccine Aged Out No l onger eligible based on patient's age to complete this topic Pneumococcal Vaccine: Pediatrics (0 to 5 Years) and At-Risk Patients (6 to 49 Years) Aged Out No longer eligible based on patient's age to complete this topic RSV Immunizations Under 20 Months Aged Out No longer eligible based on patient's age to complete this topic Procedures Procedure Name Priority Date/Time Associated Diagnosis Comments MAGNESIUM Routine 07/03/2025 5:10 AM CDT BASIC METABOLIC PANEL Routine 07/03/2025 5:10 AM CDT CK (CPK) Routine 07/02/2025 5:55 AM CDT MAGNESIUM Routine 07/02/2025 5:55 AM CDT COMPREHENSIVE METABOLIC PANEL Routine 07/02/2025 5:55 AM CDT CBC W/DIFF AUTOMATED Routine 07/02/2025 5:55 AM CDT PROTHROMBIN TIME, VENOUS STAT 07/01/2025 4:37 PM CDT CK (CPK) STAT 07/01/2025 4:37 PM CDT COMPREHENSIVE METABOLIC PANEL STAT 07/01/2025 4:37 PM CDT CBC W/DIFF AUTOMATED STAT 07/01/2025 4:37 PM CDT from Last 3 Months Results * (ABNORMAL) BASIC METABOLIC PANEL (07/03/2025 5:10 AM CDT) [facility] GLUCOSE 98 70 - 99 MG/DL 07/03/2025 5:57 AM CDT [facility] BUN 7 7 - 18 MG/DL 07/03/2025 5:57 AM CDT [facility] CREATININE S/P/B 0.98 0.50 - 1.20 MG/DL 07/03/2025 5:57 AM CDT [facility] SODIUM S/P/B 144 136 - 145 MMOL/L 07/03/2025 5:57 AM CDT [facility] POTASSIUM S/P/B 4.0 3.5 - 5.1 MMOL/L 07/03/2025 5:57 AM CDT [facility] CHLORIDE S/P/B 110(H) 100 - 108 MMOL/L 07/03/2025 5:57 AM CDT [facility] CO2 29.8 21.0 - 32.0 MMOL/L 07/03/2025 5:57 AM CDT [facility] CALCIUM S/P/B 8.4(L) 8.5 - 10.1 MG/DL 07/03/2025 5:57 AM CDT [facility] ANION GAP 4.2(L) 5.0 - 15.0 MMOL/L 07/03/2025 5:57 AM CDT [facility] BUN CREATININE RATIO 7.1 6 - 26 07/03/2025 5:57 AM CDT [facility] GFR ESTIMATE >90 >90 ML/MIN/1.7 3 M2 07/03/2025 5:57 AM CDT [facility] Comment: NOTE: eGFR is not calculated for patients <18 years of age. This is an estimated GFR calculation using the new CKD EPI creatinine equation without race and so does not require a correction factor for race. This estimated GFR should not be used for calculating drug doses. 07/03/2025 5:10 AM CDT us Ermias Sanon MD LABORATORY Final Result Performing Organization Address City/[facility]/ZIP Co de Phone Number [facility] [address] [facility] [address], [place] * (ABNORMAL) MAGNESIUM (07/03/2025 5:10 AM CDT) Only the most recent of2 resultswithin the time period is included. MAGNESIUM 1.6(L) 1.8 - 2.4 MG/DL 07/03/2025 5:57 AM CDT [facility] 07/03/2025 5:10 AM CDT us Ermias Sanon MD LABORATORY Final Result Performing Organization Address City/[facility]/ZIP Co de Phone Number [facility] [address] [facility] [address], * (ABNORMAL) COMPREHENSIVE METABOLIC PANEL (07/02/2025 5:55 AM CDT) Only the most recent of2 resultswithin the time period is included. GLUCOSE 96 70 - 99 MG/DL 07/02/2025 7:23 AM CDT [facility] BUN 8 7 - 18 MG/DL 07/02/2025 7:23 AM CDT [facility] CREATININE S/P/B 1.01 0.50 - 1.20 MG/DL 07/02/2025 7:23 AM CDT [facility] SODIUM S/P/B 142 136 - 145 MMOL/L 07/02/2025 7:23 AM CDT [facility] POTASSIUM S/P/B 4.0 3.5 - 5.1 MMOL/L 07/02/2025 7:23 AM CDT [facility] CHLORIDE S/P/B 109(H) 100 - 108 MMOL/L 07/02/2025 7:23 AM CDT [facility] CO2 27.9 21.0 - 32.0 MMOL/L 07/02/2025 7:23 AM CDT [facility] CALCIUM S/P/B 8.3(L) 8.5 - 10.1 MG/DL 07/02/2025 7:23 AM CDT [facility] BILIRUBIN TOTAL S/P/B 0.9 0.2 - 1.2 MG/DL 07/02/2025 7:23 AM CDT [facility] Comment: THIS ASSAY IS NOT RECOMMENDED FOR PATIENTS UNDERGOING TREATMENT WITH ELTROMBOPAG DUE TO THE POTENTIAL FOR FALSELY ELEVATED RESULTS. TOTAL PROTEIN S/P/B 5.5(L) 6.4 - 8.2 G/DL 07/02/2025 7:23 AM CDT [facility] ALBUMIN S/P/B 3.1(L) 3.4 - 5.0 G/DL 07/02/2025 7:23 AM CDT [facility] AST 218(H) 15 - 37 U/L 07/02/2025 7:23 AM CDT [facility] ALT 63(H) 16 - 60 U/L 07/02/2025 7:23 AM CDT [facility] ALKALINE PHOSPHATASE S/P/B 71 50 - 136 U/L 07/02/2025 7:23 AM CDT [facility] ANION GAP 5.1 5.0 - 15.0 MMOL/L 07/02/2025 7:23 AM CDT [facility] BUN CREATININE RATIO 7.9 6 - 26 07/02/2025 7:23 AM CDT [facility] A/G RATIO 1.3 1.0 - 2.5 RATIO 07/02/2025 7:23 AM CDT [facility] GFR ESTIMATE >90 >90 ML/MIN/1.7 3 M2 07/02/2025 7:23 AM CDT [facility] Comment: NOTE: eGFR is not calculated for patients <18 years of age. This is an estimated GFR calculation using the new CKD EPI creatinine equation without race and so does not require a correction factor for race. This estimated GFR should not be used for calculating drug doses. 07/02/2025 5:55 AM CDT us Kateryna More MD LABORATORY Final Re sult [address] [place] [address], * (ABNORMAL) CBC W/DIFF AUTOMATED (07/02/2025 5:55 AM CDT) Only the most recent of2 resultswithin the time period is included. WBC 6.50 4.50 - 11.00 x10'3/uL 07/02/2025 6:19 AM CDT [facility] RBC 4.88 4.50 - 5.90 x10'6/uL 07/02/2025 6:19 AM CDT [facility] HGB 13.7(L) 14.0 - 18.0 G/DL 07/02/2025 6:19 AM CDT [facility] HCT 40.9(L) 43.0 - 54.0 % 07/02/2025 6:19 AM CDT [facility] MCV 83.8 80.0 - 100.0 FL 07/02/2025 6:19 AM CDT [facility] MCH 28.1 26.0 - 34.0 PG 07/02/2025 6:19 AM CDT [facility] MCHC 33.5 31.0 - 37.0 G/DL 07/02/2025 6:19 AM CDT [facility] RDW 12.6 11.6 - 14.8 % 07/02/2025 6:19 AM CDT [facility] PLT 197 130 - 400 x10'3/uL 07/02/2025 6:19 AM CDT [facility] MPV 9.1 7.0 - 12.0 FL 07/02/2025 6:19 AM CDT [facility] CBC COMMENT AUTOMATED RBC MORPHOLOGY AND PLATELET EVALUATION NORMAL 07/02/2025 6:19 AM CDT [facility] NEUTROPHILS % 43.7 40.0 - 74.0 % 07/02/2025 6:19 AM CDT [facility] LYMPHOCYTES % 43.5 14.0 - 46.0 % 07/02/2025 6:19 AM CDT [facility] MONOCYTES % 7.8 4.0 - 13.0 % 07/02/2025 6:19 AM CDT [facility] EOSINOPHILS 4.0 0.0 - 7.0 % 07/02/2025 6:19 AM CDT [facility] BASOPHILS 0.8 0.0 - 3.0 % 07/02/2025 6:19 AM CDT [facility] IMMATURE GRANS % 0.2 0.0 - 0.43 % 07/02/2025 6:19 AM CDT [facility] NRBC % 0.0 % 07/02/2025 6:19 AM CDT [facility] ABS. NEUTROPHILS TOTAL 2.84 1.69 - 7.81 x10'3/uL 07/02/2025 6:19 AM CDT [facility] ABS. LYMPHOCYTES 2.83 0.21 - 5.42 x10'3/uL 07/02/2025 6:19 AM CDT [facility] ABS. MONOCYTES 0.51 0.04 - 1.37 x10'3/uL 07/02/2025 6:19 AM CDT [facility] ABS. EOSINOPHILS 0.26 0.00 - 0.68 x10'3/uL 07/02/2025 6:19 AM CDT [facility] ABS. BASOPHILS 0.05 0.00 - 0.08 x10'3/uL 07/02/2025 6:19 AM CDT [facility] ABS. IMMATURE GRANULOCYTES 0.01 0.00 - 0.06 x10'3/uL 07/02/2025 6:19 AM CDT [facility] ABS. NUCLEATED RBC'S 0.00 0.00 - 0.01 x10'3/uL 07/02/2025 6:19 AM CDT [facility] 07/02/2025 5:55 AM CDT Kateryna More MD LABORATORY Final Re sult Performing Organization Address [facility]/ZIP Co de Phone Number [facility] [address] [facility] [address], * (ABNORMAL) CK (CPK) (07/02/2025 5:55 AM CDT) Only the most recent of2 resultswithin the time period is included. CPK 11,636(H) 35 - 232 U/L 07/02/2025 7:23 AM CDT [facility] 07/02/2025 5:55 AM CDT Kateryna More MD LABORATORY Final Re sult [facility] [address] [place] [address], * PROTIME/INR, VENOUS (07/01/2025 4:37 PM CDT) PROTIME 11.2 9.1 - 12.4 SEC 07/01/2025 4:[address] [facility] INR 1.0 07/01/2025 4:[address] [facility] Comment: Recommend INR ranges for Oral Anticoagulant Therapy: Mechanical Cardiac Values 2.5-3.5 All others indication 2.0-3.0 07/01/2025 4:37 PM CDT Bandar Sales MD LABORATORY Final Result Performing Organization Address City/State/[facility] Co de Phone Number [facility] [address] [place] [address], from Last 3 Months Insurance [place] Advance Directives * Full Code (Latest Code Status on File) Date Activated Date Inactivated Comments 07/01/2025 8:18 PM 07/03/2025 1:30 PM Care Teams Rehab Department Manager Relationship Specialty Start Date End Date None, Provider, PCP - General UNKNOWN PHYSICIAN SPECIALTY 07/01/25
[2025-08-20 14:51] VITALS: BP 125/66; PULSE 65; RESP 18; TEMP 36.6; O2SAT 99
--- NOTE | 2025-08-20 15:19 | ED_ITS ---
HPI - URI/Sore Throat General Chief Complaint: Upper Respiratory Infection Stated Complaint: stomach/flu Time Seen by Provider: 08/20/25 15:00 Source: patient and RN notes reviewed Mode of arrival: ambulatory Limitations: no limitations History of Present Illness HPI Narrative: 29-year-old male presents Express Care complaining of upper respiratory symptoms for approximately 3 days. Patient reports runny nose, cough, congestion, headache, malaise, nausea, diarrhea. Patient denies any fevers, body aches, chills, vomiting, abdominal pain, chest pain, difficulty breathing, shortness of breath, or any other symptoms. Patient has been taking DayQuil, NyQuil, and Tylenol to help with symptoms. Patient denies any significant past medical history. Related Data Allergies Allergy/AdvReac Type Severity Reaction Status Date / Time sertraline (From Zoloft) Allergy Intermediate Hives Verified 08/20/25 14:49 cannabidiol (CBD) extract AdvReac Intermediate Nausea and Verified 08/20/25 14:49 Vomiting nicotine AdvReac Intermediate Fainting Verified 08/20/25 14:49 Review of Systems Review of Systems: CONSTITUTIONAL: Denies fever, chills, body aches, or sweats. EYES: Denies visual changes, redness, or discharge. ENT: Positive for rhinorrhea, congestion. Negative for sore throat, or otalgia. CARDIOVASCULAR: Denies chest pain, palpitations, or edema. RESPIRATORY: Positive for cough. Negative for dyspnea or wheezing. GASTROINTESTINAL: Denies abdominal pain, bloody stools, vomiting. Positive for nausea and diarrhea. GENITOURINARY: Denies dysuria or hematuria. SKIN: Denies rash or itching. MUSCULOSKELETAL: Denies back pain, joint pain, or myalgia. NEUROLOGIC: Denies headache, numbness, or weakness. PSYCHIATRIC: Denies anxiety or depression. All other systems reviewed are negative, except as documented in HPI. [facility] Past Medical History Medical History Fracture of left hand Ear infection ADD (attention deficit disorder) Bipolar 1 disorder Anxiety and depression Surgical History Surgical History History of placement of ear tubes Social History Social History (Reviewed 08/20/25 @ 15:22 by NARCISA Ring Smoking status: Current every day smoker Living arrangements: with family Gender identity (if verbalized by the patient): Male Comments At the time of my signature, I reviewed and agree with the nursing past medical, surgical, social, and family history. There is no relevant family history pertinent to the patient complaint. Exam Narrative: GENERAL: This is a well-nourished, well-developed adult, in no apparent distress. They are non ill-appearing, nontoxic appearing. HEAD: normocephalic, atraumatic. EYES: Sclera clear/white. Vision is grossly intact. Conjunctiva normal bilaterally. Extraocular movements intact. EARS: External ears normal, auditory canals clear and without drainage, TMs without erythema or perforation. Hearing grossly intact. NOSE: External nose normal with no obvious nasal discharge, nasal turbinates erythematous, no rhinorrhea. THROAT: Mucous membranes moist, posterior pharynx erythematous without exudate. Uvula is midline. Postnasal drip present. NECK: Neck supple, non-tender without lymphadenopathy, masses or thyromegaly. CARDIOVASCULAR: Regular rate and rhythm without murmurs, gallops, or rubs. RESPIRATORY: Clear to auscultation. Breath sounds equal bilaterally. No wheezes, rales, or rhonchi. GASTROINTESTINAL: Abdomen flat, soft, nondistended, nontender. Bowel sounds are active. No guarding or rigidity. SKIN: warm, Dry, intact with no suspicious lesions or rash, good texture and turgor. NEURO: awake, alert, and oriented to person, place and time. There were no obvious focal neurologic abnormalities. EXTREMITIES: No joint tenderness, effusion, or edema noted. BACK: Nontender without deformity. Course Course Emergency Course: Portions of this record may have been created with voice recognition software Level of Care: Express Care Visit Vital Signs Vital signs: Vital Signs Temperature 97.8 F 08/20/25 14:51 Pulse Rate 65 08/20/25 14:51 Respiratory Rate 18 08/20/25 14:51 Blood Pressure 125/66 08/20/25 14:51 Pulse Oximetry 99 08/20/25 14:51 Oxygen Delivery Room Air 08/20/25 14:51 Temperature 97.8 F 08/20/25 14:51 Pulse Rate 65 08/20/25 14:51 Respiratory Rate 18 08/20/25 14:51 Blood Pressure 125/66 08/20/25 14:51 Pulse Oximetry 99 08/20/25 14:51 Oxygen Delivery Room Air 08/20/25 14:51 MDM - URI/Sore Throat MDM Narrative Medical decision making narrative: Rapid COVID and flu were negative. Symptoms are likely viral in etiology. Will prescribe prescription of Zofran for her nausea and vomiting. Discussed physical exam findings. Advised supportive measures and signs/symptoms to go to the ER. Pt is appropriate for outpt treatment and f/u. Differential Diagnosis Differential diagnosis: Likely upper respiratory infection, sinusitis, viral infection, influenza and other (Gastroenteritis) Lab Data Attestation: I reviewed the patient's lab results. Discharge Plan Discharge Clinical Impression: Viral illness Patient Disposition: Home Condition: Stable Instructions: Viral Syndrome (ED) Additional Instructions: Your rapid COVID and flu were negative today. Viral illness may last between 7-14 days; antibiotics do not cure viral illness and are NOT recommended at this time. Recommend antihistamine such as Zyrtec or Claritin during the day. Follow instructions on the bottle. You may continue to take DayQuil or NyQuil as needed for your symptoms, follow instructions on the label. Do not consume additional Tylenol as DayQuil and NyQuil already contain Tylenol in it. Do not consume more than a 1000 mg of Tylenol at a time, do not exceed more than 4000 mg of Tylenol in a day. Cough syrup may cause drowsiness; avoid driving or take it at night time. Also, recommend symptomatic treatment includes: rest, fluids, and increase humidity of the air at home. Take Zofran as needed for nausea. You may take ibuprofen as needed for pain or fevers. May take 600-800 mg by mouth every 6 to 8 hours. Do not exceed more than 3200 mg of ibuprofen a day. Please schedule a follow-up visit with your personal physician for further evaluation and treatment within 3-5days. Go to the ER if you develops difficulty breathing, breathing problems, shortness of breath, chest pains, fevers, worsening symptoms, uncontrollable nausea and vomiting, or any serious concerns. Patient Language: Belgian Prescriptions: New ondansetron 4 mg tablet,disintegrating 4 mg PO Q8H PRN (Reason: nausea and vomiting) Qty: 12 0RF Follow-up/Referrals: UNKNOWN,DOCTOR [Primary Care Provider] Stand Alone Forms: Work/School Release IP Time of Disposition: 15:16
[2025-08-20 15:22] LABS: EDCOVIDSCREEN Negative (Negative); EDINFLUASCREEN Negative (Negative); EDINFLUBSCREEN Negative (Negative)
== END 2025-08-20 15:20 | disposition home or self-care (01) ==
DX: B34.9 Viral infection, unspecified (principal); Z20.822 Contact with and (suspected) exposure to COVID-19; F17.200 Nicotine dependence, unspecified, uncomplicated
CPT/HCPCS: 87426; 87804; 99213; G0463